=== PATIENT | male | born 1980 | race Caucasian/White ===

== ENCOUNTER → 2019-08-07 | Outpatient (CLI) | payer BC ==
--- NOTE | 2019-08-07 15:30 | XR ---
EXAMINATION TYPE: XR KUB DATE OF EXAM: 08/07/2019 COMPARISON: None INDICATION: Calculus of ureter left side TECHNIQUE: Single view abdomen frontal projection FINDINGS: There is a normal bowel gas pattern. Psoas margins are normal. No organomegaly is present. No suspicious calcifications evident. There appear to be phleboliths within the pelvis. A 0.3 cm calc ification above the iliac spines could be a distal left ureteral stone. IMPRESSION: 1. Small distal left ureteral stone not excluded. Phleboliths remain within the differential.
== END | disposition home or self-care (01) ==
LOC: RADXRMAIN 09:41
PROVIDERS: ATTEND Urology
DX: I87.8 Other specified disorders of veins (principal)
CPT/HCPCS: 74018

== ENCOUNTER → 2019-08-26 | Outpatient (CLI) | payer BC ==
--- NOTE | 2019-08-26 09:06 | XR ---
EXAMINATION TYPE: XR KUB DATE OF EXAM: 08/26/2019 HISTORY: Pain Comparison: 08/07/2019 Single KUB is submitted for interpretation. Findings: Right renal calculi: None Visualized. Right ureteral calculi: None Visualized. Left renal calculi: None Visualized. Left ureteral calculi: Previously noted distal left ureteral calculus is not redemonstrated. Pelvic calcifications: Stable phleboliths are noted within the pelvis. Bowel gas pattern is unremarkable. No free air. No mass effects. IMPRESSION: 1. Previously noted distal left ureteral calculus is not identified at this time.
== END | disposition home or self-care (01) ==
LOC: RADXRMAIN 08:24
PROVIDERS: ATTEND Urology
DX: N20.0 Calculus of kidney (principal)
CPT/HCPCS: 74018